=== PATIENT | male | born 1950 | race Caucasian/White ===

== ENCOUNTER 2017-11-04 07:35 | Day surgery (SDC) | payer MEDICARE ==
[2017-11-04] VITALS (11 sets, daily range): BP systolic 121–145; BP diastolic 63–80
[~2017-11-04] VITALS: Ht 172.7 cm; Wt 104.6 kg
[2017-11-04] MEDS ORDERED: oxyCODONE IR 5mg (immed. release) tablet PO PRN (08:05)
[2017-11-04] MEDS ORDERED: normal saline 1000ml 1,000 ML IV PRN (08:05)
[2017-11-04] MEDS ORDERED: fentaNYL/PF 50MCG/1 ML 2ML syringe IV ONE (08:35)
[2017-11-04] MEDS ORDERED: MIDAZolam 1mg/ml 10ml vial IV ONE (08:35)
[2017-11-04] MEDS ORDERED: METF500T PO (08:35)
[2017-11-04] MEDS ORDERED: SITA100T11 PO (08:35)
[2017-11-04] MEDS ORDERED: GLIM4TAB79 PO (08:38)
[2017-11-04] MEDS ORDERED: BUPR150T8 PO (08:38)
[2017-11-04] MEDS ORDERED: AMLO5TAB PO (08:40)
[2017-11-04] MEDS ORDERED: ATOR10TA87 PO (08:41)
[2017-11-04] MEDS ORDERED: LOSA1TAB41 PO (08:41)
[2017-11-04] MEDS ORDERED: ASPI81TA52 PO (08:42)
[2017-11-04] MEDS ORDERED: MULT1TAB74 PO (08:43)
[2017-11-04] MEDS ORDERED: OMEG1CAP13 PO (08:44)
[2017-11-04] MEDS ORDERED: HYDROcodone/acetaminophen 5mg/325mg tablet PO PRN (11:00)
[2017-11-04] MEDS ORDERED: FLU VACC QS2017-18 36MOS UP/PF 60 MCG/0.5 ML SYRINGE IMVAC ONE ×2 (15:40→15:45)
== END 2017-11-04 12:50 | disposition home or self-care (01) ==
LOC: SSTAY O 07:35
PROVIDERS: ATTEND Radiology Diagnostic Radiology
DX: K75.89 Other specified inflammatory liver diseases (principal); K73.8 Other chronic hepatitis, not elsewhere classified; K76.0 Fatty (change of) liver, not elsewhere classified; K74.0 Hepatic fibrosis; E11.9 Type 2 diabetes mellitus without complications; G47.30 Sleep apnea, unspecified; I10 Essential (primary) hypertension; M51.36 Other intervertebral disc degeneration, lumbar region; Z86.010 Personal history of colon polyps; Z90.89 Acquired absence of other organs; Z90.49 Acquired absence of other specified parts of digestive tract; Z98.890 Other specified postprocedural states; Z72.89 Other problems related to lifestyle; Z79.82 Long term (current) use of aspirin; Z79.84 Long term (current) use of oral hypoglycemic drugs; Z88.0 Allergy status to penicillin; Z79.899 Other long term (current) drug therapy
CPT/HCPCS: 47000; 76942; J7030; 88307; 88313

== ENCOUNTER 2025-01-11 13:25 | Emergency (ER) | payer MEDICARE ==
[~2025-01-11] VITALS: Ht 172.7 cm; Wt 87.5 kg
[~2025-01-11 13:25] MED LIST: AMLO5TAB PO; ASPI81TA52 PO; ATOR10TA87 PO; BUPR150T8 PO; GLIM4TAB7 PO; LOSA1TAB41 PO; METF500T PO; MULT-620 PO; OMEG-5 PO; SITA100T11 PO
[2025-01-11 13:30] VITALS: TEMP 97.6
[2025-01-11 13:53] LABS: BASOPHILS % (AUTO) 0.3 % (0-1); EOSINOPHILS # (AUTO) 0.1 X10'3 (0-0.9); EOSINOPHILS % (AUTO) 1.2 % (0-6); HEMATOCRIT 41.7 % (42.0-52.0); LYMPHOCYTES # (AUTO) 1.4 X10'3 (1.1-4.8); LYMPHOCYTES % (AUTO) 16.8 % (21-51); MEAN CORPUSCULAR HEMOGLOBIN 30.9 PG (27.0-31.0); MEAN CORPUSCULAR HGB CONC 33.5 g/dL (33.0-36.5); MEAN CORPUSCULAR VOLUME 92.2 FL (78-98); MEAN PLATELET VOLUME 7.2 FL (7.4-10.4); MONOCYTES # (AUTO) 0.5 X10'3 (0-0.9); MONOCYTES % (AUTO) 6.4 % (2-12); NEUTROPHILS # (AUTO) 6.4 X10'3 (1.8-7.7); NEUTROPHILS % (AUTO) 75.3 % (42-75); PLATELET COUNT 182 X10'3 (140-440); RED BLOOD COUNT 4.52 X10'6 (4.70-6.10); RED CELL DISTRIBUTION WIDTH 14.1 % (11.5-14.5); WHITE BLOOD COUNT 8.5 X10'3 (4.5-11.0)
[2025-01-11 14:01] LABS: ALANINE AMINOTRANSFERASE 51 U/L (12-78); ALBUMIN 3.7 G/DL (3.4-5.0); ALBUMIN/GLOBULIN RATIO 1.2 (1.1-1.5); ALKALINE PHOSPHATASE 70 IU/L (46-116); ANION GAP 6 (8-16); ASPARTATE AMINO TRANSFERASE 23 U/L (10-37); BILIRUBIN,TOTAL 0.5 MG/DL (0.1-1.0); BLOOD UREA NITROGEN 22 MG/DL (7-18); BUN/CREATININE RATIO 12.9 (10.0-20.0); CALCIUM 8.9 MG/DL (8.5-10.1); CHLORIDE 108 MMOL/L (99-107); GLUCOSE 117 MG/DL (70-104); POTASSIUM 3.9 MMOL/L (3.5-5.1); SODIUM 144 MMOL/L (135-145); TOTAL CARBON DIOXIDE 30.1 MMOL/L (24-32); TOTAL PROTEIN 6.9 G/DL (6.4-8.2); eCRCL 37 ML/MIN; eGFR 40 ML/MIN
[2025-01-11 14:07] LABS: PRO BRAIN NATRIURETIC PEPTIDE 45 PG/ML (0-125)
[2025-01-11 17:11] VITALS: BP 154/79; PULSE 86; RESP 11; O2SAT 100
== END 2025-01-11 17:13 | disposition home or self-care (01) ==
LOC: ER 13:26
DX: R07.89 Other chest pain (principal); Z88.0 Allergy status to penicillin; Z79.82 Long term (current) use of aspirin
CPT/HCPCS: 36415; 71045; 80053; 83880; 84484; 85025; 93005; 99285